=== PATIENT | female | born 1995 | race Caucasian/White ===

== ENCOUNTER 2017-05-25 21:05 | Emergency (ER) | payer BC ==
--- NOTE | 2017-05-26 00:03 | ED ---
GI/ HPI - HPI Summary HPI Summary: 22 female presents to ED with complaints of urinary retention x 24 hours. Patient states she woke up at 2am early this morning 05/25/17 and was unable to urinate. Was seen at [facility] earlier today, was catheterized and had pelvic exam. Diagnosed with urinary retention and given flomax. Patient still has not been able to urinate. Took [employer]. Patient states she is experiencing burning in the urethra area. Denies external findings. No vaginal discharge or complaints. Some suprapubic abdominal pressure. Denies back pain. Has not experienced any signs of urinary frequency, urgency or blood in urine prior to retention episode. Has never had symptoms like this before. No new medications. Patient denies fever/chills, nausea and vomiting. Last normal bowel movement was yesterday. Last normal urination was also 12am 05/25/17. No other complaints. No recent trauma or injury. No numbness/tingling. Denies PMHx. No other medications. - History of Current Complaint Chief Complaint: EDUrogenitalProblems Time Seen by Provider: 05/25/17 22:44 Stated Complaint: UNABLE TO URINATE Hx Obtained From: Patient Hx Last Menstrual Period: 04/26/16 Onset/Duration: Started Days Ago - 1 Timing: Lasting Days - 24 hours Severity: Moderate Current Severity: Moderate Pain Intensity: 7 - burning Location of Pain: Suprapubic - urethra Pain Characteristics: Burning Associated Signs and Symptoms: Positive: Dysuria, UTI Symptoms - dysuria, urinary retention Aggravating Factor(s): Nothing Alleviating Factor(s): Nothing - Allergy/Home Medications Allergies/Adverse Reactions: Allergies Allergy/AdvReac Type Severity Reaction Status Date / Time No Known Allergies Allergy Verified 10/25/16 14:28 PMH/Surg Hx/FS Hx/Imm Hx Endocrine/Hematology History: Denies: Hx Diabetes, Hx Thyroid Disease Cardiovascular History: Denies: Hx Hypertension, Hx Pacemaker/ICD Respiratory History: Reports: Hx Asthma Denies: Hx Chronic Obstructive Pulmonary Disease (COPD) GI History: Denies: Hx Ulcer Sensory History: Denies: Hx Hearing Aid Neurological History: Reports: Other Neuro Impairments/Disorders - 2 CONCUSSIONS IN 2 MONTHS Psychiatric History: Denies: Hx Panic Disorder - Surgical History Surgery Procedure, Year, and Place: t&a - Immunization History Date of Tetanus Vaccine: utd Date of Influenza Vaccine: 2016 Immunizations Up to Date: Yes Infectious Disease History: No Infectious Disease History: Denies: Hx Hepatitis, Hx Human Immunodeficiency Virus (HIV), Traveled Outside the [place] in Last 30 Days - Family History Known Family History: Negative: Hypertension - Social History Alcohol Use: Weekly Substance Use Type: Reports: None Smoking Status (MU): Never Smoked Tobacco Review of Systems Constitutional: Negative Cardiovascular: Negative Respiratory: Negative Gastrointestinal: Negative Positive: see HPI, dysuria - burning, other - retention All Other Systems Reviewed And Are Negative: Yes Physical Exam Triage Information Reviewed: Yes Vital Signs On Initial Exam: Initial Vitals Temp Pulse Resp BP Pulse Ox 98.2 F 91 16 132/57 100 05/25/17 21:17 05/25/17 21:17 05/25/17 21:17 05/25/17 21:17 05/25/17 21:17 Vital Signs Reviewed: Yes Appearance: Positive: Well-Appearing - tearful, Well-Nourished, Pain Distress - mild Skin: Positive: Warm, Skin Color Reflects Adequate Perfusion, Dry. Negative: Cold, Cyanosis @ Head/Face: Positive: Normal Head/Face Inspection Eyes: Positive: Conjunctiva Clear ENT: Positive: Normal ENT inspection, Hearing grossly normal Neck: Positive: Supple, Nontender Respiratory/Lung Sounds: Positive: Clear to Auscultation, Breath Sounds Present. Negative: Rales, Rhonchi, Wheezes Cardiovascular: Positive: Normal, RRR, Pulses are Symmetrical in both Upper and Lower Extremities. Negative: Murmur, Rub Abdomen Description: Positive: Nontender - some suprapubic discomfort, No Organomegaly, Soft. Negative: CVA Tenderness (R), CVA Tenderness (L), Distended , Guarding, McBurney's Point Tenderness, Peritoneal Signs Bowel Sounds: Positive: Present Pelvic Exam: Positive: external exam normal - pelvic exam not preformed due to patient already having exam completed with cultures obtained at [facility], refused another exam. urethra orifice appeared normal without abnormalities Musculoskeletal: Positive: Normal, Strength/ROM Intact. Negative: Limited @, Interruption @, Pain @ Neurological: Positive: Normal, Sensory/Motor Intact, Alert, Oriented to Person Place, Time, CN Intact II-III, Reflexes Intact, NV Bundle Intact Distally, Normal Gait - [place] Coma Scale Best Eye Response: 4 - Spontaneous Best Motor Response: 6 - Obeys Commands Best Verbal Response: 5 - Oriented Coma Scale Total: 15 Diagnostics - Vital Signs Vital Signs Temp Pulse Resp BP Pulse Ox 05/25/17 21:17 98.2 F 91 16 132/57 100 - Laboratory Result Diagrams: 05/26/17 02:00 05/26/17 02:00 Lab Statement: Any lab studies that have been ordered have been reviewed, and results considered in the medical decision making process. - CT abd/pelvis CT Interpretation: Positive (See Comments) - 2.3cm hyperdense nodule inferior to the urinary bladder at the midline, of uncertain etiology, suggest followup MRI. CT Interpretation Completed By: Radiologist - and my self, Dr Hector VALDEZ Course/Dx - Course Course Of Treatment: bladder scan completed. patient was catheterized to obtain urine for urinalysis had significant amount of urine in bladder. urine was neon orange in color due to azo. urinalysis obtained. will be cultured, pending results. Ct abd/pelvis obtained. Showing a nodule inferior to urinary bladder, of uncertain etiology. abnormal appearing bladder on CT. possible cause of retention. needs further imaging with urologist within the next 2-3 days. basic labs obtained and negative, no sign of acute kidney failure. Due to patient symptoms and urinalysis will treat for UTI as well. Possible retention due to nodule found on CT at urinary outlet. no neuro deficit or trauma. pelvic exam not completed due to patient already having completed at [facility], and had cultures obtained. spoke with Dr Young about case agrees with plan. Will send home with leg catheter , educated and instructed on use. given pyridium to try and help with pain. discontinue flomax. follow up pcp and urologist. return if worsening signs/symptoms, complications. - Diagnoses Differential Diagnoses - Female: Urinary Tract Infection, Ureteral Calculi, Other - urinary retention, bladder cancer Provider Diagnoses: Acute urinary retention, Urinary tract infection - Physician Notifications Discussed Care Of Patient With: Dr Young Discharge - Discharge Plan Condition: Stable Disposition: HOME Prescriptions: Nitrofurantoin Monohyd Macro [Macrobid] 100 mg PO BID #13 cap Phenazopyridine 200 mg (NF) [Pyridium 200 MG tab *] 200 mg PO TID #5 tab Patient Education Materials: Urinary Tract Infection in Women (ED), [place] Catheter Placement and Care (ED), Acute Urinary Retention in Women (ED) Referrals: Lloyd SMITH,Rosita Davenport [Primary Care Provider] - Will Marcano MD [Medical Doctor] - Additional Instructions: Please refrain from touching/removing catheter. Any complication please seek medical attention. Discontinue flomax and oral decongestants. Take prescribed medication to help with UTI. You will hear about culture results if need medication changed. Keep good hygiene. Follow up with urologist VICTOR M for further imaging and evaluation. Any new or worsening symptoms, as discussed please return to ED promptly.
[2017-05-26 00:56] LABS: Urine Bacteria Absent (Absent); Urine Bilirubin Negative (Negative); Urine Glucose Negative (Negative); Urine Nitrite Positive (Negative)
[2017-05-26] MEDS ORDERED: Phenazopyridine TAB* 100 MG PO ONE (01:04)
[2017-05-26] MEDS ORDERED: Nitrofurantoin Macrocrystals* 50 MG CAP PO ONE (01:04)
[2017-05-26 01:16] LABS: Manual Entry Verification CAR0052; UR Preg Internal Control QC Line Present; UR Preg Kit Lot# 7030210
[2017-05-26 02:32] LABS: Hematocrit 40 % (35-47); Hemoglobin 14.2 g/dl (12.0-16.0); Mean Corpuscular HGB Conc 35 g/dl (31-36); Mean Corpuscular Hemoglobin 30 pg (27-31); Mean Corpuscular Volume 85 fL (80-97); Mean Platelet Volume 9 um3 (7.4-10.4); Red Blood Count 4.77 10^6/ul (4.0-5.4); Red Cell Distribution Width 13 % (10.5-15); White Blood Count 10.3 10^3/ul (3.5-10.8)
[2017-05-26 02:40] LABS: Albumin 4.1 g/dL (3.2-5.2); BUN/Creatinine Ratio 16.1 (8-20); Calcium 9.5 mg/dL (8.6-10.3); EGFR African American 177.5 (>60); Globulin 2.5 g/dL (2-4); Potassium 3.6 mmol/L (3.5-5.0); Total Bilirubin 0.3 mg/dL (0.2-1.0); Total Protein 6.6 g/dL (6.4-8.9)
[2017-05-26 04:58] VITALS: BP 123/77
--- NOTE | 2017-05-26 11:46 | RAD ---
CLINICAL HISTORY: The patient is unable to urinate. COMPARISON: None TECHNIQUE: Noncontrast CT examination of the abdomen and pelvis from the lung bases through the initial tuberosities. FINDINGS: VISUALIZED LUNG BASES: The visualized lung bases are grossly clear. There is no pleural effusion. ABDOMEN AND PELVIS: Evaluation of the solid organs and vasculature is limited without intravenous contrast. The spleen is enlarged measuring 13.3 cm in greatest axial dimension. The liver, pancreas and adrenal glands are grossly normal in appearance. The gallbladder is normal. The kidneys are normal in appearance without focal mass, calcification or signs of hydronephrosis. Evaluation of the gastrointestinal tract is limited in the absence of oral contrast. The small and large bowel are not distended.The patient's normal appendix is identified in the right lower quadrant with gas in the lumen measuring 4 mm in diameter (coronal image 38 and axial image 113). There is no gross retroperitoneal or mesenteric lymphadenopathy. The pelvic viscera is normal in appearance. The abdominal aorta and iliac arteries are normal in course and diameter. There are no sinister bone lesions. IMPRESSION: There is a nonspecific soft tissue nodule measuring up to 2.5 cm in greatest dimension at the junction of the urinary bladder and urethra which would be the most likely culprit for urinary outlet obstruction. A nonmalignant HPV-related mass or urethral polyp are considered diagnostic etiologies. Further characterization can be made with contrast-enhanced MRI of the pelvis and/or direct visualization with cystoscopy.
== END 2017-05-26 07:10 | disposition home or self-care (01) ==
LOC: ED 21:05
DX: N39.0 Urinary tract infection, site not specified (principal); R30.0 Dysuria; R33.9 Retention of urine, unspecified
CPT/HCPCS: 36415; 74176; 80053; 81003; 81015; 81025; 85025; 87086; 99282; A9270-GY